=== PATIENT | male | born 1980 | race Caucasian/White ===

== ENCOUNTER 2020-12-17 15:08 | Emergency (ER) | payer OTHER ==
[~2020-12-17] VITALS: Ht 172.7 cm; Wt 120.0 kg
[~2020-12-17 15:08] MED LIST: BL IBUPROFEN200 MG PO; GABAPENTIN300 M2; PEPCID20 MG PO; SEROQUEL PO
[2020-12-17] MEDS ORDERED: BP MED (15:29)
[2020-12-17 15:44] LABS: HEMATOCRIT 37.6 % (39.0-50.0); IMMATURE GRANULOCYTES 0.7 % (0.0-5.0); MEAN CELL VOLUME 88.1 fL CALC (80.0-100.0); NEUT# 6.22 thou/uL (1.82-7.42); RED BLOOD COUNT 4.27 mill/uL (4.70-6.10); RED CELL DISTRI WIDTH 11.9 % (11.5-15.5)
[2020-12-17 15:48] LABS: HEMOGLOBIN 12.8 g/dl (14.0-18.0)
[2020-12-17 15:52] LABS: ALKALINE PHOSPHATASE 84 u/l (38-126); AMYLASE 50 u/l (30-110); ANION GAP 11 (6-22 (CALC)); BILIRUBIN, TOTAL 0.5 mg/dL (0.0-1.4); BUN 12 mg/dL (9-20); BUN/CREATININE RATIO 15 (12-20 (CALC)); CARBON DIOXIDE 25 mmol/l (22-30); CHLORIDE 107 mmol/l (95-108); CREATININE 0.8 mg/dL (0.7-1.3); GFR > 60 ML/MIN (>=60 (CALC)); GFR FOR AFR.AMER. > 60 ML/MIN (>=60 (CALC)); LIPASE 47 u/l (23-300); POTASSIUM 4.1 mmol/l (3.5-5.1); SGOT/AST 20 u/l (17-59); SODIUM 139 mmol/l (137-146)
[2020-12-17 15:54] LABS: ALBUMIN 3.6 g/dL (3.2-5.0); TOTAL PROTEIN 6.5 g/dL (6.3-8.2)
[2020-12-17 16:04] LABS: MYOGLOBIN 26 ng/mL (0 - 121)
[2020-12-17 17:16] LABS: URINE BILIRUBIN - DIPSTICK NEGATIVE (NEGATIVE); URINE BLOOD DIPSTICK NEGATIVE (NEGATIVE); URINE COLOR YELLOW; URINE GLUCOSE - DIPSTICK NEGATIVE (NEGATIVE); URINE KETONE NEGATIVE (NEGATIVE); URINE LEUK ESTERASE NEGATIVE (NEGATIVE); URINE PH 6.5 (4.5-8.0); URINE PROTEIN - DIPSTICK NEGATIVE (NEG-TRACE); URINE UROBILINOGEN - DIPSTICK 0.2 E.U./dL (0.2)
[2020-12-17 17:18] LABS: URINE NITRITE - DIPSTICK NEGATIVE (Negative)
[2020-12-17 19:49] VITALS: BP 149/69
== END 2020-12-17 19:50 | disposition home or self-care (01) | DRG 313 ==
LOC: ED 15:08
DX: R07.89 Other chest pain (principal)